=== PATIENT | male | born 1985 | race Caucasian/White ===

== ENCOUNTER 2017-05-18 02:06 | Observation (INO) | payer SELFPAY ==
[2017-05-18] MEDS ORDERED: Acetaminophen TAB* 325 MG PO ONE (02:25)
[2017-05-18] MEDS ORDERED: NS 0.9% 1000 ML* 1,000 ML IV SCH (02:30)
[2017-05-18] MEDS ORDERED: Ibuprofen TAB* 800 MG PO ONE ×2 (03:01→03:03)
[2017-05-18] MEDS ORDERED: Morphine INJ* 4 MG/ML 1 ML CARPUJECT IV ONE (03:49)
--- NOTE | 2017-05-18 03:58 | ED ---
Lokesh Galo Tecjoon, scribed for Wilder Morgan MD on 05/18/17 at 0233 . Abdominal Pain/Male - HPI Summary HPI Summary: This patient is a 32 year old male BIBA to [facility] from [place] with a chief complaint of RLQ pain for 2 days. Patient states that he was at [place] with possible appendicitis. After receiving treatment, patient states that his abdominal pain has down to a pressure. He currently rates his pain at 0/ 10 in severity. Symptoms aggravated by getting up. Symptoms alleviated by medication. Patient additionally reports fever. Patient denies pain when coughing. - History of Current Complaint Chief Complaint: EDAbdPain Stated Complaint: ABD PAIN, COMINBG FROM [facility] ER Time Seen by Provider: 05/18/17 02:07 Hx Obtained From: Patient Onset/Duration: Gradual Onset, Lasting Days - 2 Timing: Constant Severity Currently: None Pain Intensity: 0 Pain Scale Used: 0-10 Numeric Location: Discrete At: RLQ Character: Other: - pressure Aggravating Factor(s): Movement Alleviating Factor(s): Medications Associated Signs And Symptoms: Positive: Fever - Allergies/Home Medications Allergies/Adverse Reactions: Allergies Allergy/AdvReac Type Severity Reaction Status Date / Time No Known Allergies Allergy Verified 05/18/17 03:02 PMH/Surg Hx/FS Hx/Imm Hx Previously Healthy: Yes Opthamlomology History: Denies: Hx Legally Blind EENT History: Denies: Hx Deafness Neurological History: Denies: Hx Dementia Infectious Disease History: No Infectious Disease History: Denies: Traveled Outside the [place] in Last 30 Days - Family History Known Family History: Positive: Cardiac Disease Negative: Diabetes - Social History Alcohol Use: Occasionally Hx Substance Use: No Substance Use Type: Reports: None Hx Tobacco Use: No Smoking Status (MU): Never Smoked Tobacco Do You Chew or Dip Tobacco: No Review of Systems Positive: Fever Positive: Abdominal Pain All Other Systems Reviewed And Are Negative: Yes Physical Exam - Summary Physical Exam Summary: VITAL SIGNS: Reviewed. GENERAL: Patient is a well-developed and nourished male who is lying comfortable in the stretcher. Patient is not in any acute respiratory distress. HEAD AND FACE: No signs of trauma. No ecchymosis, hematomas or skull depressions. No sinus tenderness. EYES: PERRLA, EOMI x 2, No injected conjunctiva, no nystagmus. EARS: Hearing grossly intact. Ear canals and tympanic membranes are within normal limits. MOUTH: Oropharynx within normal limits. NECK: Supple, trachea is midline, no adenopathy, no JVD, no carotid bruit, no c- spine tenderness, neck with full ROM. CHEST: Symmetric, no tenderness at palpation LUNGS: Clear to auscultation bilaterally. No wheezing or crackles. CVS: Regular rate and rhythm, S1 and S2 present, no murmurs or gallops appreciated. ABDOMEN: Tenderness in RLQ. Bowel sounds are normal. EXTREMITIES: FROM in all major joints, no edema, no cyanosis or clubbing. NEURO: Alert and oriented x 3. No acute neurological deficits. Speech is normal and follows commands. SKIN: Dry and warm Triage Information Reviewed: Yes Vital Signs On Initial Exam: Initial Vitals Temp Pulse Resp BP Pulse Ox 101.6 F 105 16 123/69 100 05/18/17 02:10 05/18/17 02:10 05/18/17 02:10 05/18/17 02:10 05/18/17 02:10 Vital Signs Reviewed: Yes - Ochoa Coma Scale Coma Scale Total: 15 Diagnostics - Vital Signs Vital Signs Temp Pulse Resp BP Pulse Ox 05/18/17 02:10 101.6 F 105 16 123/69 100 - Laboratory Lab Statement: Any lab studies that have been ordered have been reviewed, and results considered in the medical decision making process. Abdominal Pain Fem Course/Dx - Course Course Of Treatment: This patient is a 32 year old male BIBA to [facility] from [place] with a chief complaint of RLQ pain for 2 days. Patient states that he was transferred from [place] with possible appendicitis. After receiving treatment, patient states that his abdominal pain has down to a pressure. In the ED course, the patient was given Morphine, Ibuprofin, Tylenol. We discussed patient care with Dr. Matos (Surgery) at 0355, who agreed to accept the patient. Dr. Matos will relay admitting orders to the nurse. - Diagnoses Provider Diagnoses: Acute appendicitis - Provider Notifications Discussed Care Of Patient With: Jesse Wilkinson - Surgery Time Discussed With Above Provider: 03:56 - We discussed patient care with Dr. Matos (Surgery) at 0355, who agreed to accept the patient. Dr. Mecena will relay admitting orders to the nurse. Instructed by Provider To: Admit As Inpatient Discharge - Discharge Plan Condition: Fair Disposition: ADMITTED TO [facility] Referrals: No Primary Care Phys,NOPCP [Primary Care Provider] - The documentation as recorded by the Lokesh frances Tecjoon accurately reflects the service I personally performed and the decisions made by me, Wilder Morgan MD.
[2017-05-18] MEDS ORDERED: HYDROmorphone INJ* 1 MG/ML CARPUJECT SYRINGE IV PRN (04:55)
[2017-05-18] MEDS ORDERED: Ondansetron INJ* 2 MG/ML VIAL IV PRN (04:56)
[2017-05-18] MEDS: NS 0.9% 1000 ML* 1,000 ML IV SCH ×4 (05:11→21:52)
[2017-05-18] MEDS ORDERED: ZOSYN 3.375 GM x ONE DOSE over 30 miuntes IVPB ×2 (05:30)
[2017-05-18] MEDS: ZOSYN 3.375 GM Q8H per EXTENDED INFUSION IVPB SCH ×4 (10:13→18:13)
--- NOTE | 2017-05-18 10:24 | HP ---
DATE OF ADMISSION: 05/18/2017. ATTENDING SURGEON: Dr. Devin Sun * (FADI Reynolds dictating). CHIEF COMPLAINT: Abdominal pain. HISTORY OF PRESENT ILLNESS: This is a 32-year-old, generally healthy male who beginning on Monday noted right lower quadrant and right flank pain with associated nausea and vomiting. He states he was unable to keep anything down for that first 24 hours. On Monday, he continued to have right lower quadrant and right flank pressure. The pain was somewhat relieved. He was able to take in some liquids and food, but then noticed fever and chills. He presented to the ED at [facility]. He has not had any similar past episodes. He denies any symptoms. He has had no change in his bowel movements. He has not had any prior abdominal surgeries. PAST MEDICAL HISTORY: Unremarkable for any significant past or active medical problems. He has not had any prior surgeries. CURRENT MEDICATIONS: None. DRUG ALLERGIES: None. FAMILY HISTORY: Negative for anesthesia problems, bleeding or clotting disorders. SOCIAL HISTORY: The patient lives with his girlfriend. 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 He denies tobacco use. He drinks between two and three beers per week. He denies other recreational drug use. REVIEW OF SYSTEMS: General: No recent constitutional symptoms or acute illnesses other than as described in the HPI. Cardiovascular: No history of chest pain, palpitations, or heart murmur. Respiratory: No history of asthma or shortness of breath. GI: As above per HPI. : Negative for hematuria or dysuria. Endocrine: No diabetes or thyroid dysfunction. PHYSICAL EXAMINATION GENERAL: Well-nourished, well-developed male in no acute distress. He appears comfortable. SKIN: Warm and dry. No suspicious rashes or lesions. VITAL SIGNS: Height 6'2", weight 215 pounds. Temperature 98.3 with a T-max of 101.6, blood pressure 95/41, pulse 83, respirations 16, room air saturation 97 percent. HEENT: Pupils equal and round, reactive. EOM's intact. No conjunctival pallor. Scleral icterus. Oropharynx: Teeth in good repair. No intra-oral lesions. NECK: No lymphadenopathy, thyromegaly, or masses. LUNGS: Clear to auscultation. No wheezes. HEART: Regular rate and rhythm. No murmur noted. ABDOMEN: Bowel sounds present, flat, nondistended. Soft with well-localized tenderness at McBurney's point without rebound or rigidity. No palpable masses or organomegaly. No palpable inguinal hernias. EXTREMITIES: No edema. NEUROLOGIC: Grossly intact. LABORATORY DATA: White blood cell count 18,300 with left shift, hemoglobin 14. Electrolytes notable for potassium of 3.4, creatinine elevated at 1.2, BUN 11. Urinalysis was not obtained as the patient was unable to void until this morning. CT scan without contrast was reviewed by Dr. Sun and shows periappendiceal inflammation and stranding felt to be consistent with acute appendicitis. IMPRESSION: Acute appendicitis. PLAN: Laparoscopic appendectomy. FADI REYNOLDS [id number]/[facility] #: [id number] MTDErvin
[2017-05-18] MEDS ORDERED: fentaNYL* 50 MCG/ML 2 ML VIAL (100 MCG VIAL) IV PRN (12:10)
[2017-05-18] MEDS ORDERED: Propofol* 10 MG/ML 20 ML BTL IV PUSH ONE (12:26)
[2017-05-18] MEDS ORDERED: Neostigmine Methylsulfate* 2 MG/2 ML SYRINGE ONE (12:26)
[2017-05-18] MEDS ORDERED: Lidocaine 2% PF * 5 ML VIAL ONE (12:26)
[2017-05-18] MEDS ORDERED: Midazolam* 1 MG/ML 2 ML VIAL (2 MG) ONE (12:26)
[2017-05-18] MEDS ORDERED: Glycopyrrolate IV* 0.2 MG/ML 1 ML VIAL ONE (12:26)
[2017-05-18] MEDS ORDERED: fentaNYL* 50 MCG/ML 2 ML VIAL (100 MCG VIAL) ONE (12:26)
[2017-05-18] MEDS ORDERED: Rocuronium* 10 MG/ML VIAL ONE (12:27)
[2017-05-18] MEDS ORDERED: Bupivacaine 0.25% SDV* 30 ML ONE (12:34)
[2017-05-18] MEDS ORDERED: Acetaminophen TAB* 325 MG PO PRN (14:07)
[2017-05-18] MEDS ORDERED: Ketorolac INJ* 30 MG/ML 1 ML VIAL ONE (14:15)
[2017-05-18] MEDS ORDERED: Ibuprofen TAB* 600 MG PO PRN (14:35)
[2017-05-18] MEDS: HYDROcodone/ACETAMIN 5-325 MG* 1 TAB PO PRN ×2 (16:51→23:28)
[2017-05-19] MEDS: ZOSYN 3.375 GM Q8H per EXTENDED INFUSION IVPB SCH ×2 (02:00)
[2017-05-19] MEDS: NS 0.9% 1000 ML* 1,000 ML IV SCH (04:42)
[2017-05-19] MEDS: HYDROcodone/ACETAMIN 5-325 MG* 1 TAB PO PRN (07:31)
[2017-05-19 07:32] VITALS: BP 112/61
--- NOTE | 2017-05-19 10:34 | DS ---
DATE OF ADMISSION: 05/18/2017. DATE OF DISCHARGE: 05/19/2017. PRINCIPAL ADMITTING DIAGNOSIS: Appendicitis. OPERATION ON THIS ADMISSION: Laparoscopic appendectomy. HOSPITAL COURSE: The patient is a 32-year-old male who was transferred over from [facility] with evidence of acute appendicitis. He was taken to the operating room later the same day wher e he was found to have acute appendicitis with a small perforation at the tip of the appendix. He un derwent laparoscopic appendectomy. He was maintained on intravenous antibiotics overnight and was af ebrile the next morning, feeling well, minimal pain, minimal tenderness, tolerating oral intake. He is to be discharged home on oral antibiotics and will follow-up in the clinic in approximately ten da ys time. [id number]/[facility] #: [id number]
--- NOTE | 2017-05-19 13:37 | OP ---
CC: Dr. Devin Sun OPERATIVE REPORT: DATE OF OPERATION: 05/18/17 DATE OF : 89 SURGEON: Devin Sun MD. ROUTE PROCESS ADMINISTRATOR: None. ANESTHESIOLOGIST: Dr. Bravo. ANESTHESIA: General anesthetic, local infiltration. PRE-OP DIAGNOSIS: Appendicitis. POST-OP DIAGNOSIS: Appendicitis. OPERATIVE PROCEDURE: Laparoscopic appendectomy. DESCRIPTION OF PROCEDURE: The patient was supine on the operating room table. After adequate general anesthetic, compression stockings, Saman-Hugger warmer, and intravenous antibiotics, the abdomen was prepped with antiseptic, draped in a sterile fashion. Local infiltrative anesthesia was administered . Small umbilical incision was created. Blunt port cannula was placed. Insufflation was carried ou t with carbon dioxide. Additional cannulae, 5-mm left lower quadrant and left mid abdomen, were plac ed with small stab wounds under direct vision. The appendix came off the cecum in the usual location . There was no inflammation in this area. It then wrapped up behind the cecum, up into the gutter, and upon dissecting the appendix out of the retrocecal location, the tip of the appendix was very inf lamed and there was a little purulent collection in this area. The base of the appendix was divided with an EndoGIA stapler with a pruett cartridge. The mesoappendix was incrementally ligated using the L igaSure device until the entire appendix was free. This was placed in a retrieval bag. The operative field was well irrigated with warm saline solution. Free fluid was suctioned out. Suctioning was c arried out down to the pelvis and up over the liver as well. Hemostasis was again confirmed. The michelet endix was removed through the umbilical site without contamination. The umbilical fascia was closed with 0 Vicryl, followed by 5-0 Vicryl for all skin incision. Steri-Strips were placed. He tolerated the procedure well, was awakened, and brought to recovery in good condition. No complications. No drains. Pathology specimen was appendix. Sponge and instrument counts were correct. Estimated blood loss was less than 20 mL. [id number]/[facility] #: [id number]
--- NOTE | 2017-05-19 23:50 | DS ---
DISCHARGE SUMMARY: DATE OF ADMISSION: 05/18/17 DATE OF DISCHARGE: 05/19/17 PATIENT OF: Devin Sun MD * (DICTATED BY FADI EUGENE) ADMISSION DIAGNOSES: 1. Abdominal pain. 2. Acute perforated appendicitis. DISCHARGE DIAGNOSES: 1. Abdominal pain. 2. Acute perforated appendicitis. ADMITTING PHYSICIAN: Devin Sun MD CONSULTATIONS: None. PROCEDURE: Laparoscopic appendectomy on 05/18/17. BRIEF MEDICAL HISTORY: Mr. Pizano is a 32-year-old gentleman who presented to the emergency room with complaints of right flank pain and right lower quadrant abdominal pain for the past 24 hours. He described it as worsening pain associated with nausea and vomiting that started the day before. The pain somehow got progressively worse and he noticed associated fever and chills as well. He presented to the emergency room at [facility] and was eventually transferred to [facility] Emergency Room for further evaluation of possible appendicitis. The patient had laboratory workup that revealed a leukocytosis with white count of 18,000 as well as a CT scan finding consistent with acute appendicitis with possible perforation. Given his ongoing symptoms and the finding of the scan, the patient was admitted under surgical services in anticipation for surgery. HOSPITAL COURSE: The patient was admitted on the same day and was taken to the operating room later in the afternoon where he had a laparoscopic appendectomy. His surgery went quite smoothly with no immediate complications. After recovery , he was taken to the surgical floor for observation overnight. He was covered prophylactically with IV antibiotics and started on clear liquid diet postoperatively that he tolerated well and eventually his diet was advanced to regular diet prior to his discharge. On the following morning, his pain was under control and his abdominal exam was essentially unremarkable. He will be discharged home today and will be covered with oral antibiotic for a 7-day period and will be followed up at [facility] with Dr. Sun next week. DISCHARGE MEDICATIONS: Include: 1. Augmentin 875 mg p.o. b.i.d. for 7 days. 2. Randlett 5/325 one to two tablets every 4 hours as needed for pain. PROBLEM LIST: Acute perforated appendicitis, status post laparoscopic appendectomy on 05/18/17. FADI EUGENE [id number]/[facility] #: [id number] MTDD
== END 2017-05-19 11:06 | disposition home or self-care (01) ==
LOC: ED 02:06 → SSU 04:13
PROVIDERS: ADMIT Internal Medicine; ATTEND Surgery
DX: K35.89 Other acute appendicitis (principal); R10.31 Right lower quadrant pain; R11.2 Nausea with vomiting, unspecified
CPT/HCPCS: 88304; 94760; 96374; 96375; 99283; A9270-GY; G0378; J1170; J1885; J2250; J2270; J2405; J2543; J2704; J3010

== ENCOUNTER 2017-05-30 10:00 | Inpatient (IN) | payer SELFPAY ==
[2017-05-30] MEDS ORDERED: HYDROmorphone INJ* 2 MG/ML CARPUJECT SYRINGE IV PRN (16:47)
[2017-05-30] MEDS ORDERED: Ketorolac INJ* 30 MG/ML 1 ML VIAL IV PRN (16:47)
[2017-05-30] MEDS ORDERED: Ondansetron INJ* 2 MG/ML VIAL IV PRN (16:47)
[2017-05-30] MEDS ORDERED: Acetaminophen TAB* 325 MG PO PRN (16:47)
--- OUTSIDE RECORDS SUMMARY | 2017-05-30 16:54 | XMS REPORT ---
:1985 External Reference #:[id number] Author Organization [facility] Address [address] [address] Phone [phone] Care Team Providers Name Role Phone Devin Sun MD Primary Care Physician Unavailable Problems Description No Information Social History Type Date Description Comments ETOH Use Drinks Alcoholic Beverages Rarely Smoking Patient has never smoked Allergies, Adverse Reactions, Alerts Date Description Reaction Status Severity Comments 05/25/2017 NKDA active Medications Medication Date Status Form Strength Qnty SIG Indications Ordering Provider Tylenol Active Capsules 325mg 2 tablets Unknown 0 every 4 hours as needed for pain Ibuprofen Active Tablets 400mg by mouth Unknown 0 every 4 to 6 hours as needed Vital Signs Date Vital Result Comment 05/30/2017 Heart Rate 90 /min BP Systolic Sitting 118 mmHg BP Diastolic Sitting 72 mmHg Respiratory Rate 18 /min Body Temperature 97.5 F 05/29/2017 Height 74 inches 6'2" Weight 210.00 lb Heart Rate 76 /min BP Systolic Recheck 108 mmHg BP Diastolic Recheck 76 mmHg Respiratory Rate 16 /min Body Temperature 98.4 F BMI (Body Mass Index) 27.0 kg/m2 Results Description No Information Procedures Date CPT Code Description Status 05/18/2017 93664 Laparoscopy, Surgical, Appendectomy Completed Plan of Care No Information Available
--- OUTSIDE RECORDS SUMMARY | 2017-05-30 16:55 | XMS REPORT ---
:1985 External Reference #:[id number] [facility] Address [address] [address] Phone [phone] Care Team Providers Name Role Phone Devin [...] every 4 hours as needed for pain Vital Signs Date Vital Result Comment 05/29/2017 Height 74 inches 6'2" Weight 210.00 lb Heart Rate 76 /min BP Systolic Recheck 108 mmHg BP Diastolic Recheck 76 mmHg Respiratory Rate 16 /min Body Temperature 98.4 F BMI (Body Mass Index) 27.0 kg/m2 Results Description No Information Procedures Date CPT Code Description Status 05/18/2017 30383 Laparoscopy, Surgical, Appendectomy Completed Plan of Care 05/29/2017 - Devin Sun M.D.K35.80 Unspecified acute appendicitisFollow up :As needed
[2017-05-30] MEDS: oxyCODONE/Acetamin 5/325 MG* TAB PO PRN (17:03)
[2017-05-30] MEDS: NS 0.9% 1000 ML* 1,000 ML IV SCH ×2 (17:15→23:27)
[2017-05-30] MEDS ORDERED: Piperacillin/Tazobactam VIAL*) 3.375 GM in NS 0.9% 100 ML* 100 ML IVPB ONE (17:30)
[2017-05-30] MEDS ORDERED: HYDROmorphone INJ* 1 MG/ML CARPUJECT SYRINGE IV PRN (17:36)
[2017-05-30] MEDS: Piperacillin/Tazobactam 13.5 GM IV 24 hour continuous infusion IVPB SCH ×2 (20:54)
--- NOTE | 2017-05-30 21:07 | HP ---
ADMISSION HISTORY AND PHYSICAL: DATE OF ADMISSION: 05/30/17 PATIENT OF: Dr. Devin Sun.* (DICTATED BY FADI EUGENE) CHIEF COMPLAINT: Abdominal pain, fever, and chills. HISTORY OF PRESENT ILLNESS: Moncho is a pleasant 32-year-old gentleman, who is well known to our practice from prior laparoscopic appendectomy that was done approximately 10 days ago. The patient was seen in the emergency room back on 05/18/17 with complaints of right lower quadrant abdominal pain with associated nausea and vomiting. He had laboratory workup and CT scan done that was consistent with acute perforated appendicitis, for which he was taken to the operating room on a same day and was hospitalized for 2 days after for IV antibiotics. He was essentially discharged home on oral antibiotics and reports doing well at home for the first week postoperatively. He was seen yesterday at [place] office for followup with Dr. Sun and reports doing extremely well. However, when he went back home last night, he noted increasing right lower quadrant and right flank abdominal pain radiating to his right back with associated fever and chills. He also described anorexia and is being unable to tolerate any p.o. intake; however, denies any significant nausea or vomiting. His symptoms has gotten progressively worse, for which he called our office at [facility] for further evaluation. The patient was sent to the hospital and laboratory workup was obtained that reveals significant leukocytosis with white count of 25,000 as well as a CT scan consistent with a localized abscess collection in the right lower quadrant , for which the patient will be admitted for IV antibiotics. PAST MEDICAL HISTORY: Essentially unremarkable. He denies any history of lung , liver, heart, or kidney disease. PAST SURGICAL HISTORY: None. CURRENT MEDICATIONS: He takes no regular medications at home. ALLERGIES: He has no known drug allergies. FAMILY HISTORY: He denies any family history of colorectal malignancy. SOCIAL HISTORY: The patient lives with his girlfriend. He is a nonsmoker. He works in a furniture store. He drinks alcohol occasionally and caffeine intake is minimal. REVIEW OF SYSTEMS: See HPI, otherwise negative. He denies any headache, dizziness, blurred vision, or double vision. No sore throat, cough, chest pain , or shortness of breath. He admits to right flank and lower abdominal pain with associated fever and chills, but denies any nausea, vomiting, changes in bowel habits or bleeding per rectum. PHYSICAL EXAMINATION GENERAL: He is a pleasant healthy-appearing young gentleman, in no acute distress or discomfort at the time of admission. VITAL SIGNS: His vitals upon admission revealed temperature of 98.8, pulse of 131, respirations of 22, O2 sat of 95%, and blood pressure of 114/63. HEENT: Head is normocephalic, atraumatic. Sclerae anicteric. PERRLA. EOMs intact. Oropharynx is pink and moist with no exudate. NECK: Supple. Trachea midline. No cervical adenopathy, thyromegaly, or JVD. LUNGS: Clear to auscultation bilaterally. HEART: Regular rate and rhythm. Normal S1 and S2 without rubs, murmurs, or gallops. BACK: With normal curvature. No CVA tenderness. ABDOMEN: Soft and nondistended. There is moderate right lower quadrant and right flank tenderness noted with light palpation. There is some focal tenderness noted to the McBurney's point and there is also some guarding, but no rigidity or tympani noted. There is no hernias or masses noted. Incisions from prior appendectomy are well healed. EXTREMITIES: Without cyanosis, clubbing, or edema. RECTAL: Deferred at this time. NEUROLOGIC: Grossly intact. LABORATORY DATA: Laboratory workup as mentioned above, CBC with white count of 26,000, hemoglobin 12.6, hematocrit of 38, and platelets of 414. His urinalysis showed 1+ rbc's and 1+ protein. ACCESSORY DIAGNOSTIC DATA: The patient as mentioned above had CT scan of the abdomen and pelvis early this afternoon that revealed multiloculated air-fluid collection presented within the right lower quadrant consistent with an abscess. IMPRESSION: A 32-year-old gentleman, who underwent a laparoscopic appendectomy back on 05/18/17, who presented with 24 hours of worsening abdominal pain with fever, chills, and leukocytosis. CT scan findings consistent with multiloculated abdominal abscess. PLAN: I went on and discussed with the patient the findings of his exam and laboratory workup. He will be admitted under surgical services and would be given IV antibiotics for the time being. We discussed with him the possibility of going back to the operating room in case if his symptoms got worse for probable abdominal washout; however, given the size of his abscess, there is no necessary percutaneous drainage at this time. We will keep him on regular diet as well as IV Zosyn for prophylactic coverage and we will obtain laboratory workup tomorrow and reassess his exam in the morning. He appears to be comfortable at this time with no signs of acute abdomen. Case was discussed with Dr. Sun, who will see the patient later this evening for further evaluation and we will follow him up accordingly. FADI EUGENE [id number]/[facility] #: [id number] MTDErvin
[2017-05-31] MEDS: oxyCODONE/Acetamin 5/325 MG* TAB PO PRN ×4 (01:09→20:01)
[2017-05-31] MEDS: NS 0.9% 1000 ML* 1,000 ML IV SCH ×3 (06:09→19:51)
[2017-05-31 09:05] LABS: Hematocrit 34 % (42-52); Hemoglobin 11.2 g/dl (14.0-18.0); Mean Corpuscular HGB Conc 33 g/dl (31-36); Mean Corpuscular Hemoglobin 29 pg (27-31); Mean Corpuscular Volume 86 fL (80-94); Mean Platelet Volume 9 um3 (7.4-10.4); Platelet Count 343 10^3/ul (150-450); Red Blood Count 3.91 10^6/ul (4.0-5.4); Red Cell Distribution Width 14 % (10.5-15); White Blood Count 22.6 10^3/ul (3.5-10.8)
[2017-05-31 09:06] LABS: ABS Basophils 0 10^3/ul (0-0.2); ABS Eosinophils 0 10^3/ul (0-0.6); ABS Lymphocytes 1.3 10^3/ul (1.0-4.8); ABS Monocytes 1.9 10^3/ul (0-0.8); ABS Neutrophils 19.3 10^3/ul (1.5-7.7); ABS Nucleated RBC 0 10^3/ul; Eosinophil % 0.1 % (0-6); Lymphocyte % 5.8 % (25-47); Nucleated Red Blood Cells % 0
[2017-05-31 09:24] LABS: EGFR Non-African American 115.2 (>60)
[2017-05-31] MEDS: Piperacillin/Tazobactam 13.5 GM IV 24 hour continuous infusion IVPB SCH ×2 (19:52)
[2017-06-01] MEDS: NS 0.9% 1000 ML* 1,000 ML IV SCH ×3 (02:31→17:17)
[2017-06-01] MEDS: oxyCODONE/Acetamin 5/325 MG* TAB PO PRN ×4 (02:33→21:04)
--- NOTE | 2017-06-01 10:31 | PN ---
Progress Note - Progress Note Date of Service: 06/01/17 SOAP: Subjective: Patient seen and examined at bedside. Reports doing better overall. Has some RLQ pain last night and fever up to 100, but better this AM. Eating better, denies nausea or vomiting. Objective: Awake and alert, comfortable in bed VSS, Watters 98.1 Lungs CTA bilat. Heart RRR, no murmurs Abdomen soft, NT, ND Assessment: Clinically improving on IV antibiotics, s/p lap appy for perforated appendicitis 2 weeks ago. Plan: Continue Zosyn Ambulate likely home in AM 06/02
[2017-06-01] MEDS: Piperacillin/Tazobactam 13.5 GM IV 24 hour continuous infusion IVPB SCH ×2 (21:03)
[2017-06-02] MEDS: NS 0.9% 1000 ML* 1,000 ML IV SCH ×2 (01:06→09:04)
[2017-06-02] MEDS: oxyCODONE/Acetamin 5/325 MG* TAB PO PRN ×2 (02:31→09:05)
[2017-06-02 08:32] LABS: Hematocrit 33 % (42-52); Hemoglobin 11.3 g/dl (14.0-18.0); Mean Corpuscular HGB Conc 34 g/dl (31-36); Mean Corpuscular Hemoglobin 30 pg (27-31); Mean Corpuscular Volume 86 fL (80-94); Mean Platelet Volume 9 um3 (7.4-10.4); Platelet Count 404 10^3/ul (150-450); Red Blood Count 3.84 10^6/ul (4.0-5.4); Red Cell Distribution Width 14 % (10.5-15); White Blood Count 16.8 10^3/ul (3.5-10.8)
[2017-06-02 08:35] LABS: ABS Basophils 0 10^3/ul (0-0.2); ABS Eosinophils 0 10^3/ul (0-0.6); ABS Lymphocytes 1.5 10^3/ul (1.0-4.8); ABS Monocytes 1.9 10^3/ul (0-0.8); ABS Neutrophils 13.4 10^3/ul (1.5-7.7); ABS Nucleated RBC 0 10^3/ul; Eosinophil % 0.2 % (0-6); Lymphocyte % 8.7 % (25-47); Nucleated Red Blood Cells % 0
--- NOTE | 2017-06-02 09:07 | PN ---
Progress Note - Progress Note Date of Service: 06/02/17 SOAP: Subjective: Patient seen and examined at bedside. Reports feeling better today. No fever or chills. Tolerating diet, moving his bowels. he was seen and exmined earlier this AM by Dr. Sun as well. Objective: Awake and alert, comfortable in bed VSS, afebrile Abdomen soft, ND. Mild RLQ tenderness, without guarding or rigidity. WBC down to 16,000 I/Os noted Assessment: Clinically improving on IV antibiotics, s/p lap appendectomy 2 weeks ago, complicated with RLQ abscess Plan: D/C to home today on Augmentin F/U with Dr. Sun at [place] office on Monday with CBC check
[2017-06-02 10:47] VITALS: BP 110/71
--- NOTE | 2017-06-02 15:05 | DS ---
DATE OF ADMISSION: 05/30/2017. DATE OF DISCHARGE: 06/02/2017. PATIENT OF: Dr. Devin Sun* (dictated by FADI Davis). ADMISSION DIAGNOSES: 1. Abdominal pain. 2. Fever and chills. DISCHARGE DIAGNOSES: 1. Abdominal pain. 2. Fever and chills. 3. Right lower quadrant intra-abdominal abscess. BRIEF MEDICAL HISTORY: Moncho is a pleasant, 32-year-old gentleman who is well - known to us from prior laparoscopic appendectomy that was done on 05/18/2017. The patient was seen in the emergency room back then and was found to have significant right lower quadrant abdominal pain for which he was taken to the operating room and found on examination to have perforated appendicitis. He had a laparoscopic appendectomy and was sent home on oral antibiotics. He was seen for a follow-up a week later and reports doing well; however, later that day he experienced significant right lower quadrant abdominal pain with associated fever and chills. He returned to the hospital and laboratory work-up was obtained revealing significant leukocytosis with a white count of 25,[address] scan findings consistent with localized abscess collection in his right lower quadrant. Given his ongoing symptoms, the patient was admitted for IV antibiotics. HOSPITAL COURSE: The patient was admitted under Surgical Services. He was started on IV Zosyn three times daily and was maintained on his regular diet. He started to have less pain as the day progressed and complains of no more fever or chills. He was ambulatory out of bed and in stable condition. Labs were obtained the next day that revealed a white blood cell count trended down with a value of 22,000. He continued to improve on a daily basis using IV antibiotics and his last CBC was checked prior to discharge revealing a value of 16,000. He no longer complained of any abdominal pain and his vitals were monitored and revealed no fever in the past 48 hours. He will be discharged home in stable condition on Augmentin and will be seen in three days for a follow-up with repeated CBC to document resolution. He also was advised to call the office or present to the emergency room over the weekend with any worsening symptoms. DISCHARGE MEDICATIONS: 1. Augmentin 875 mg one tablet b.i.d. for 10 days. 2. Percocet 5/325 one to two tablets every 6 hours as needed for pain. PROBLEM LIST: Laparoscopic appendectomy for perforated appendicitis on 2016, complicated by right lower quadrant intra-abdominal abscess, status post admission with IV antibiotics and discharged in stable condition. FADI DAVIS [id number]/[facility] #: [id number] [facility] HOSPITALErvin
== END 2017-06-02 11:15 | disposition home or self-care (01) | DRG 862 ==
LOC: MED 10:00 → OBSVTOIN 05-31 10:00
PROVIDERS: ADMIT Surgery; ATTEND Surgery
DX: T81.4XXA Infection following a procedure, initial encounter (principal); K65.1 Peritoneal abscess; X58.XXXA Exposure to other specified factors, initial encounter; Y92.009 Unspecified place in unspecified non-institutional (private) residence as the place of occurrence of the external cause
CPT/HCPCS: 36415; 80048; 85025; A9270-GY; G0378; J2405; J2543